=== PATIENT | male | born 1965 | race Caucasian/White ===

== ENCOUNTER 2016-12-13 07:57 | Day surgery (SDC) | payer BC ==
[2016-12-13] MEDS ORDERED: Lactated Ringers 1,000 ML IV SCH (08:45)
[2016-12-13] MEDS ORDERED: fentaNYL 100 MCG/2 ML SDV ONE (10:00)
[2016-12-13] MEDS ORDERED: Propofol 200 MG/20 ML SDV ONE (10:00)
[2016-12-13] MEDS ORDERED: Midazolam 1 MG/ML 2 ML SDV ONE (10:01)
[2016-12-13 11:54] VITALS: BP 110/77
--- NOTE | 2016-12-13 18:33 | OR ---
DATE OF PROCEDURE: 12/13/2016 PREOPERATIVE DIAGNOSIS: Colon cancer screening. POSTOPERATIVE DIAGNOSIS: Unremarkable colonoscopy. PROCEDURE PERFORMED: Colonoscopy to the cecum. SURGEON: Feliz Broderick MD. ANESTHESIA: IV anesthesia with monitored anesthesia care. INDICATION: This 51-year-old white male is referred for a colonoscopy for colon cancer screening. He has never had a colonoscopic exam. I counseled him for the procedure including risks, alternatives, and he gave his informed consent to proceed. DESCRIPTION OF PROCEDURE: The patient was placed in the left lateral decubitus position. IV anesthesia was administered by the Anesthesia Service. Time-out was held. A rectal exam was performed, which was unremarkable. The flexible video Olympus colonoscope was introduced through his anus, up his rectum, and out his colon all way to the cecum. To reach the cecum, we did apply some abdominal compression. Once the cecum was reached, the scope was slowly withdrawn, examining the mucosa throughout. No mucosal abnormalities were noted. The scope was retroflexed in the rectum with the distal rectum appearing unremarkable. The scope was straightened and removed. He tolerated the procedure well. Feliz Broderick MD /[id number] MTDD
== END 2016-12-13 11:57 | disposition home or self-care (01) ==
LOC: JP.SDS 07:57
PROVIDERS: ATTEND Surgery
DX: Z12.11 Encounter for screening for malignant neoplasm of colon (principal); K21.9 Gastro-esophageal reflux disease without esophagitis
CPT/HCPCS: 45378; J2250; J2704; J3010; J7120

== ENCOUNTER 2017-02-28 06:31 | Inpatient (IN) | payer BC ==
[2017-02-28] MEDS ORDERED: Nitroglycerin 0.4 MG Tab.SL SL PRN (06:39)
[2017-02-28] MEDS ORDERED: Sodium Chloride 0.9% 10 ML Syringe FLUSH PRN (06:39)
[2017-02-28] MEDS ORDERED: Morphine 2 MG/ML Syringe IVPUSH PRN ×2 (06:39→10:40)
[2017-02-28] MEDS ORDERED: Aspirin 81 MG Tab.Chew PO ONE (06:39)
[2017-02-28] MEDS ORDERED: Ondansetron 4 MG/2 ML SDV IVPUSH ONE ×2 (06:46→07:51)
--- NOTE | 2017-02-28 06:48 | EDM.PDOC ---
<OfficerJv - Last Filed: 02/28/17 06:45> ED HPI GENERAL MEDICAL PROBLEM - General Chief Complaint: Chest Pain Stated Complaint: CHEST PAIN Time Seen by Provider: 02/28/17 06:39 Source of Information: Reports: Patient, Family, RN Notes Reviewed History Limitations: Reports: No Limitations - History of Present Illness INITIAL COMMENTS - FREE TEXT/NARRATIVE: 51-year-old gentleman presents emergency department day complaint of epigastric pain, he states the pain started about 3:30 this evening awoke him from sleep it is constant in nature does feel nauseated and some shortness of breath, he denies any significant cardiac history no family history denies any tobacco use has not tried anything for the pain Chest Pain Score (Numeric/FACES): 7 - Related Data Allergies Allergy/AdvReac Type Severity Reaction Status Date / Time No Known Drug Allergies Allergy Other Verified 02/28/17 06:41 Home Meds: Home Meds Gluc 2KCl/Chondr/Yahaira Hy/Hy Ac [Glucosamine & Chondroitin Cap] 1 tab PO DAILY [History] Multivitamin with Minerals [Multiple Vitamin] 1 tab PO DAILY 08/23/16 [History] [place]-3/DHA/Epa/Fish Oil [[place]-3 Fish Oil 1,000 MG Sfgl] 1,000 mg PO DAILY [History] Past Medical History HEENT History: Reports: Impaired Vision - Infectious Disease History Infectious Disease History: Reports: Chicken Pox - Past Surgical History Neurological Surgical History: Reports: Lumbar Spine Musculoskeletal Surgical History: Reports: Other (See Below) Other Musculoskeletal Surgeries/Procedures:: BACK SURGERY IN 2008 Social & Family History - Family History Family Medical History: Noncontributory - Tobacco Use Smoking Status *Q: Never Smoker Second Hand Smoke Exposure: No - Caffeine Use Caffeine Use: Reports: Coffee, Soda - Alcohol Use Days Per Week of Alcohol Use: 7 Number of Drinks Per Day: 2 Total Drinks Per Week: 14 - Recreational Drug Use Recreational Drug Use: No ED ROS GENERAL - Review of Systems Review Of Systems: See Below Constitutional: Reports: No Symptoms HEENT: Reports: No Symptoms Respiratory: Reports: Shortness of Breath Cardiovascular: Reports: No Symptoms GI/Abdominal: Reports: Abdominal Pain (Epigastric), Nausea Musculoskeletal: Reports: No Symptoms Skin: Reports: No Symptoms Neurological: Reports: No Symptoms ED EXAM, GENERAL - Physical Exam Exam: See Below Free Text/Narrative:: General: Male moderate discomfort secondary to epigastric pain, alert and oriented x3 HEENT: head is atraumatic normocephalic, eyes pupils equal round reactive to light, sclera clear no conjunctivitis appreciated. Ears tympanic membranes clear and sabillon landmarks and light reflex are present bilaterally canals are clear. Nose no septal deviation, nares are clear, no blood present. Mouth mucosa is moist and pink no erythema or exudate noted in soft palate, tongue is midline uvula is midline, dentition is intact. Neck: Supple no thyromegaly no tracheal deviation. Nodes: Cervical nodes subclavicular nodes nontender no palpable lymphadenopathy noted. Lungs: clear to auscultation bilaterally with symmetrical respirations, no adventitious noise appreciated. CV: Regular rate and rhythm S1 and S2 appreciated no murmurs rubs or gallops noted. Abdomen: Soft, tender to palpation in epigastric region, no palpable masses or organomegaly appreciated, no distention no guarding bowel sounds are present, . Neuro: Cranial nerves II through XII grossly intact Skin: Warm and dry, intact Extremities: No lower extremity edema appreciated, pedal pulse is +2. Course - Vital Signs Last Recorded V/S: Last Vital Signs Temp 35.8 C 02/28/17 06:38 Pulse 72 02/28/17 08:03 Resp 16 02/28/17 08:03 BP 142/100 H 02/28/17 08:03 Pulse Ox 96 02/28/17 08:03 - Orders/Labs/Meds Orders: Active Orders 24 hr Category Date Time Status Cardiac Monitoring [RC] .As Directed Care 02/28/17 06:39 Active EKG Documentation Completion [RC] ASDIRECTED Care 02/28/17 06:40 Active Peripheral IV Care [RC] . DIRECTED Care 02/28/17 06:40 Active Abdomen Ltd [US] Stat Exams 02/28/17 07:38 Ordered Chest 1V Frontal [CR] Stat Exams 02/28/17 06:40 Taken Morphine Med 02/28/17 06:39 Active 2 mg IVPUSH Q10M PRN Nitroglycerin [Nitrostat] Med 02/28/17 06:39 Active 0.4 mg SL Q5M PRN Sodium Chloride 0.9% [Saline Flush] Med 02/28/17 06:39 Active 10 ml FLUSH ASDIRECTED PRN Peripheral IV Insertion Adult [OM.PC] Stat Oth 02/28/17 06:39 Ordered Saline Lock Insert [OM.PC] Stat Oth 02/28/17 06:39 Ordered EKG 12 Lead [EK] Stat Ther 02/28/17 06:40 Ordered Medication Orders Morphine Sulfate (Morphine) 2 mg IVPUSH Q10M PRN PRN Reason: Chest Pain Stop: 03/01/17 06:40 Last Admin: 02/28/17 07:07 Dose: 2 mg Nitroglycerin (Nitrostat) 0.4 mg SL Q5M PRN PRN Reason: Chest Pain Stop: 03/01/17 06:40 Last Admin: 02/28/17 06:56 Dose: 0.4 mg Sodium Chloride (Saline Flush) 10 ml FLUSH ASDIRECTED PRN PRN Reason: Keep Vein Open Last Admin: 02/28/17 06:54 Dose: 10 ml Labs: Laboratory Tests 02/28/17 02/28/17 02/28/17 Range/Units 06:45 06:45 06:45 WBC 8.9 (4.5-11.0) K/uL RBC 5.30 (4.30-5.90) M/uL Hgb 15.7 H (12.0-15.0) g/dL Hct 46.2 (40.0-54.0) % MCV 87 (80-98) fL MCH 30 (27-31) pg MCHC 34 (32-36) % Plt Count 270 (150-400) K/uL Neut % (Auto) 66 (36-66) % Lymph % (Auto) 23 L (24-44) % Edgar % (Auto) 8 H (2-6) % Eos % (Auto) 3 (2-4) % Baso % (Auto) 0 (0-1) % PT 10.2 (9.5-12.0) sec INR 0.96 (0.80-1.20) APTT 28.1 (27.0-36.0) sec Sodium 140 (140-148) mmol/L Potassium 3.8 (3.6-5.2) mmol/L Chloride 104 (100-108) mmol/L Carbon Dioxide 28 (21-32) mmol/L Anion Gap 8.1 (5.0-14.0) mmol/L BUN 9 (7-18) mg/dL Creatinine 0.8 (0.8-1.3) mg/dL Est Cr Clr Drug Dosing 117.66 mL/min Estimated GFR (MDRD) > 60 (>60) Glucose 122 H (74-106) mg/dL Calcium 8.6 (8.5-10.1) mg/dL Total Bilirubin 0.3 (0.2-1.0) mg/dL AST 12 L (15-37) U/L ALT 40 (12-78) U/L Alkaline Phosphatase 100 (46-116) U/L CK-MB (CK-2) 0.7 (0-3.6) mg/mL Troponin I < 0.017 (0.000-0.056) ng/mL C-Reactive Protein (0.0-0.3) mg/dL Total Protein 7.6 (6.4-8.2) g/dL Albumin 3.6 (3.4-5.0) g/dL Globulin 4.0 H (2.3-3.5) g/dL Albumin/Globulin Ratio 0.9 L (1.2-2.2) Amylase (25-115) U/L Lipase (73-393) U/L 02/28/17 02/28/17 02/28/17 Range/Units 06:45 06:45 07:24 WBC (4.5-11.0) K/uL RBC (4.30-5.90) M/uL Hgb (12.0-15.0) g/dL Hct (40.0-54.0) % MCV (80-98) fL MCH (27-31) pg MCHC (32-36) % Plt Count (150-400) K/uL Neut % (Auto) (36-66) % Lymph % (Auto) (24-44) % Edgar % (Auto) (2-6) % Eos % (Auto) (2-4) % Baso % (Auto) (0-1) % PT (9.5-12.0) sec INR (0.80-1.20) APTT (27.0-36.0) sec Sodium (140-148) mmol/L Potassium (3.6-5.2) mmol/L Chloride (100-108) mmol/L Carbon Dioxide (21-32) mmol/L Anion Gap (5.0-14.0) mmol/L BUN (7-18) mg/dL Creatinine (0.8-1.3) mg/dL Est Cr Clr Drug Dosing mL/min Estimated GFR (MDRD) (>60) Glucose (74-106) mg/dL Calcium (8.5-10.1) mg/dL Total Bilirubin (0.2-1.0) mg/dL AST (15-37) U/L ALT (12-78) U/L Alkaline Phosphatase (46-116) U/L CK-MB (CK-2) (0-3.6) mg/mL Troponin I (0.000-0.056) ng/mL C-Reactive Protein 0.66 H (0.0-0.3) mg/dL Total Protein (6.4-8.2) g/dL Albumin (3.4-5.0) g/dL Globulin (2.3-3.5) g/dL Albumin/Globulin Ratio (1.2-2.2) Amylase 37 (25-115) U/L Lipase 100 (73-393) U/L Meds: Medications Generic Name Dose Route Start Last Admin Trade Name Freq PRN Reason Stop Dose Admin Morphine Sulfate 2 mg 02/28/17 06:39 02/28/17 07:07 Morphine IVPUSH 03/01/17 06:40 2 mg Q10M PRN Administration Chest Pain Nitroglycerin 0.4 mg 02/28/17 06:39 02/28/17 06:56 Nitrostat SL 03/01/17 06:40 0.4 mg Q5M PRN Administration Chest Pain Sodium Chloride 10 ml 02/28/17 06:39 02/28/17 06:54 Saline Flush FLUSH 10 ml ASDIRECTED PRN Administration Keep Vein Open Discontinued Medications Generic Name Dose Route Start Last Admin Trade Name Freq PRN Reason Stop Dose Admin Aspirin 324 mg 02/28/17 06:39 02/28/17 06:52 Aspirin PO 02/28/17 06:40 324 mg ONETIME ONE Administration Al Hydroxide/Mg Hydroxide 15 0 ml 02/28/17 07:18 02/28/17 07:26 ml/ Lidocaine HCl 15 ml PO 02/28/17 07:19 30 ml ONETIME ONE Administration Morphine Sulfate 2 mg 02/28/17 07:36 02/28/17 07:41 Morphine IVPUSH 02/28/17 07:37 2 mg ONETIME ONE Administration Ondansetron HCl 4 mg 02/28/17 06:46 02/28/17 06:53 Zofran IVPUSH 02/28/17 06:47 4 mg ONETIME ONE Administration Ondansetron HCl 4 mg 02/28/17 07:51 02/28/17 08:02 Zofran IVPUSH 02/28/17 07:52 4 mg ONETIME ONE Administration Departure - Departure Disposition: Admitted As Inpatient 67 Clinical Impression: Cholelithiasis, Right bundle branch block Referrals: Myron Acharya PA [Primary Care Provider] - Forms: ED Department Discharge Care Plan Goals: admit to Dr dubose - My Orders Last 24 Hours: My Active Orders 02/28/17 07:38 Abdomen Ltd [US] Stat - Assessment/Plan Last 24 Hours: My Active Orders 02/28/17 07:38 Abdomen Ltd [US] Stat <Aria Cai - Last Filed: 02/28/17 08:36> Course - Re-Assessments/Exams Free Text/Narrative Re-Assessment/Exam: 02/28/17 07:32 pt did not get good relief from the morphine and he was given a GI cocktail. His pain is mainly epigastric. He does not feel belchy. He woke up with this pain. 02/28/17 07:33 02/28/17 07:38 pt has not gotten rekief with the gi cocktail. 02/28/17 07:42 pt does have his gb and will do a limited abdoman. 02/28/17 08:32 Us revealed no GB thickening but he has a good sized stone in the neck of the GB. He is much more comfortable since he had the second dose of the morphine. Departure - Departure Time of Disposition: 08:34 Condition: Fair
[2017-02-28] MEDS ORDERED: Alum Hydrox/Mag Hydrox/Simeth 15 ML, Lidocaine 2% 15 ML PO ONE ×2 (07:18)
[2017-02-28] MEDS ORDERED: Morphine 2 MG/ML Syringe IVPUSH ONE (07:36)
--- NOTE | 2017-02-28 09:49 | PCM.HP ---
H&P History of Present Illness - General Date of Service: 02/28/17 Admit Problem/Dx: Admission Diagnosis/Problem Admission Diagnosis/Problem Cholelithiasis and cholecystitis without obstruction Source of Information: Patient, Family, Provider History Limitations: Reports: No Limitations - History of Present Illness Initial Comments - Free Text/Narative: Nader presented to the emergency room with severe, sharp epigastric pain that started around 3:30 AM on the day of presentation and woke him from sleep. He took omeprazole and a dose of Rolaids at home without any relief. He has had nitroglycerin, a GI cocktail as well as 2 doses of morphine before his pain was relieved in the emergency room. The second dose of morphine seemed to provide the most relief. He did not identify any exacerbating factors well at home or in the emergency room with the constant pain. He does report a history of similar episodes though not nearly as intense. He had some mild nausea associated with the pain but no vomiting. He has not had recent difficulty with fevers or chills. Weight and bowel movements have been stable. He has an excellent functional status and no limitations such as chest pain or dyspnea with exertion. He had brought [facility] [employer] for supper last night. Workup in the emergency room was initially unrevealing. Initial concern was for acute coronary syndrome but there is no evidence for EKG abnormality and his troponin level is normal. Right upper quadrant ultrasound revealed a large gallstone in the neck of the gallbladder but no strong evidence for acute cholecystitis. He will be admitted for further management. Chest Pain Score (Numeric/FACES): 3 - Related Data Allergies/Adverse Reactions: Allergies Allergy/AdvReac Type Severity Reaction Status Date / Time No Known Drug Allergies Allergy Other Verified 02/28/17 06:41 Home Medications: Home Meds Gluc 2KCl/Chondr/Yahaira Hy/Hy Ac [Glucosamine & Chondroitin Cap] 1 tab PO DAILY [History] Multivitamin with Minerals [Multiple Vitamin] 1 tab PO DAILY 08/23/16 [History] [place]-3/DHA/Epa/Fish Oil [[place]-3 Fish Oil 1,000 MG Sfgl] 1,000 mg PO DAILY [History] Past Medical History HEENT History: Reports: Impaired Vision Gastrointestinal History: Reports: GERD - Infectious Disease History Infectious Disease History: Reports: Chicken Pox - Past Surgical History Neurological Surgical History: Reports: Lumbar Spine Musculoskeletal Surgical History: Reports: Other (See Below) Other Musculoskeletal Surgeries/Procedures:: BACK SURGERY IN 2009 Social & Family History - Family History Family Medical History: Noncontributory - Tobacco Use Smoking Status *Q: Never Smoker Second Hand Smoke Exposure: No - Caffeine Use Caffeine Use: Reports: Coffee, Soda - Alcohol Use Days Per Week of Alcohol Use: 7 Number of Drinks Per Day: 2 Total Drinks Per Week: 14 - Recreational Drug Use Recreational Drug Use: No Recreational Drug Type: Reports: Marijuana/Hashish Recreational Drug Use Frequency: Monthly H&P Review of Systems - Review of Systems: Review Of Systems: See Below Free Text/Narrative: A complete 12 point review of systems was obtained. Pertinent positives and negatives are noted in the history of present illness. All other systems were reviewed and were negative except as noted. Exam - Exam Exam: See Below - Vital Signs Vital Signs: Last Vital Signs Temp 35.8 C 02/28/17 06:38 Pulse 72 02/28/17 08:03 Resp 16 02/28/17 08:03 BP 142/100 H 02/28/17 08:03 Pulse Ox 96 02/28/17 08:03 Weight: 94.9 kg - Exam Quality Assessment: No: Supplemental Oxygen General: Alert, Oriented, Cooperative. No: Mild Distress HEENT: Conjunctiva Clear, Mucosa Moist & Welch. No: Scleral Icterus Neck: Supple, Trachea Midline. No: Lymphadenopathy Lungs: Clear to Auscultation, Normal Respiratory Effort Cardiovascular: Regular Rate, Regular Rhythm. No: Systolic Murmur GI/Abdominal Exam: Normal Bowel Sounds, Soft, No Distention, No Mass, Tender ( mild RUQ) Back Exam: Full Range of Motion. No: Muscle Spasm Extremities: Normal Inspection, No Pedal Edema. No: Increased Warmth Peripheral Pulses: 2+: Dorsalis Pedis (L), Dorsalis Pedis (R) Skin: Warm, Dry Neuro Extensive - Mental Status: Alert, Oriented x3, Nl Response to Commands Neuro Extensive - Motor, Sensory, Reflexes: CN II-XII Intact. No: Dysarthria, Abnormal Motor, Tremor Psychiatric: Alert, Normal Affect - Patient Data Lab Results Last 24 hrs: Laboratory Results - last 24 hr 02/28/17 02/28/17 02/28/17 Range/Units 06:45 06:45 06:45 WBC 8.9 (4.5-11.0) K/uL RBC 5.30 (4.30-5.90) M/uL Hgb 15.7 H (12.0-15.0) g/dL Hct 46.2 (40.0-54.0) % MCV 87 (80-98) fL MCH 30 (27-31) pg MCHC 34 (32-36) % Plt Count 270 (150-400) K/uL Neut % (Auto) 66 (36-66) % Lymph % (Auto) 23 L (24-44) % Harrison % (Auto) 8 H (2-6) % Eos % (Auto) 3 (2-4) % Baso % (Auto) 0 (0-1) % PT 10.2 (9.5-12.0) sec INR 0.96 (0.80-1.20) APTT 28.1 (27.0-36.0) sec Sodium 140 (140-148) mmol/L Potassium 3.8 (3.6-5.2) mmol/L Chloride 104 (100-108) mmol/L Carbon Dioxide 28 (21-32) mmol/L Anion Gap 8.1 (5.0-14.0) mmol/L BUN 9 (7-18) mg/dL Creatinine 0.8 (0.8-1.3) mg/dL Est Cr Clr Drug Dosing 117.66 mL/min Estimated GFR (MDRD) > 60 (>60) Glucose 122 H (74-106) mg/dL Calcium 8.6 (8.5-10.1) mg/dL Total Bilirubin 0.3 (0.2-1.0) mg/dL AST 12 L (15-37) U/L ALT 40 (12-78) U/L Alkaline Phosphatase 100 (46-116) U/L CK-MB (CK-2) 0.7 (0-3.6) mg/mL Troponin I < 0.017 (0.000-0.056) ng/mL C-Reactive Protein (0.0-0.3) mg/dL Total Protein 7.6 (6.4-8.2) g/dL Albumin 3.6 (3.4-5.0) g/dL Globulin 4.0 H (2.3-3.5) g/dL Albumin/Globulin Ratio 0.9 L (1.2-2.2) Amylase (25-115) U/L Lipase (73-393) U/L 02/28/17 02/28/17 02/28/17 Range/Units 06:45 06:45 07:24 WBC (4.5-11.0) K/uL RBC (4.30-5.90) M/uL Hgb (12.0-15.0) g/dL Hct (40.0-54.0) % MCV (80-98) fL MCH (27-31) pg MCHC (32-36) % Plt Count (150-400) K/uL Neut % (Auto) (36-66) % Lymph % (Auto) (24-44) % Harrison % (Auto) (2-6) % Eos % (Auto) (2-4) % Baso % (Auto) (0-1) % PT (9.5-12.0) sec INR (0.80-1.20) APTT (27.0-36.0) sec Sodium (140-148) mmol/L Potassium (3.6-5.2) mmol/L Chloride (100-108) mmol/L Carbon Dioxide (21-32) mmol/L Anion Gap (5.0-14.0) mmol/L BUN (7-18) mg/dL Creatinine (0.8-1.3) mg/dL Est Cr Clr Drug Dosing mL/min Estimated GFR (MDRD) (>60) Glucose (74-106) mg/dL Calcium (8.5-10.1) mg/dL Total Bilirubin (0.2-1.0) mg/dL AST (15-37) U/L ALT (12-78) U/L Alkaline Phosphatase (46-116) U/L CK-MB (CK-2) (0-3.6) mg/mL Troponin I (0.000-0.056) ng/mL C-Reactive Protein 0.66 H (0.0-0.3) mg/dL Total Protein (6.4-8.2) g/dL Albumin (3.4-5.0) g/dL Globulin (2.3-3.5) g/dL Albumin/Globulin Ratio (1.2-2.2) Amylase 37 (25-115) U/L Lipase 100 (73-393) U/L Result Diagrams: 02/28/17 06:45 02/28/17 06:45 Imaging Impressions Last 24 hrs: CXR - images personally reviewed - clear with no mass, infiltrate, effusion or chf. Heart size is normal. RUQ US - there is a large stone at the neck of the gall bladder. No wall thickening or pericholecystic fluid. EKG INTERPRETATION EKG Date: 02/28/17 Rhythm: NSR Rate (Beats/Min): 70 [place]: Normal P-Wave: Present QRS: RBBB ST-T: Normal QT: Normal *Q Meaningful Use (ADM) - VTE *Q VTE Criteria *Q: VTE Pharmacological Contraindications *Q: Patient Scheduled Surgery - VTE Risk Assess *Q Each Risk Factor Represents 1 Point: Age 41 - 59 years, Minor Surgery Planned Total Score 1 Point Risk Factors: 2 Each Risk Factor Represents 2 Points: None Total Score 2 Point Risk Factors: 0 Each Risk Factor Represents 3 Points: None Total Score 3 Point Risk Factors: 0 Each Risk Factor Represents 5 Points: None Total Score 5 Point Risk Factors: 0 Venous Thromboembolism Risk Factor Score *Q: 2 - Stroke *Q Stroke Criteria *Q: - AMI *Q AMI Criteria *Q: - Problem List (1) Epigastric abdominal pain SNOMED Code(s): 26329880 ICD Code: R10.13 - EPIGASTRIC PAIN Status: Acute Current Visit: Yes (2) Cholelithiasis SNOMED Code(s): 874996096 ICD Code: K80.20 - CALCULUS OF GALLBLADDER W/O CHOLECYSTITIS W/O OBSTRUCTION Status: Acute Current Visit: Yes Qualifiers: Cholelithiasis location: gallbladder Cholecystitis presence: without cholecystitis Biliary obstruction: without biliary obstruction Qualified Code(s): K80.20 - Calculus of gallbladder without cholecystitis without obstruction Problem List Initiated/Reviewed/Updated: Yes Orders Last 24hrs: Active Orders 24 hr Category Date Time Status Patient Status Manage Transfer [TRANSFER] Routine ADT 02/28/17 09:39 Ordered Cardiac Monitoring [RC] .As Directed Care 02/28/17 06:39 Active EKG Documentation Completion [RC] ASDIRECTED Care 02/28/17 06:40 Active Peripheral IV Care [RC] . DIRECTED Care 02/28/17 06:40 Active Abdomen Ltd [US] Stat Exams 02/28/17 07:38 Taken Chest 1V Frontal [CR] Stat Exams 02/28/17 06:40 Taken Morphine Med 02/28/17 06:39 Active 2 mg IVPUSH Q10M PRN Nitroglycerin [Nitrostat] Med 02/28/17 06:39 Active 0.4 mg SL Q5M PRN Sodium Chloride 0.9% [Saline Flush] Med 02/28/17 06:39 Active 10 ml FLUSH ASDIRECTED PRN Peripheral IV Insertion Adult [OM.PC] Stat Oth 02/28/17 06:39 Ordered Saline Lock Insert [OM.PC] Stat Oth 02/28/17 06:39 Ordered Resuscitation Status Routine Resus Stat 02/28/17 09:41 Ordered EKG 12 Lead [EK] Stat Ther 02/28/17 06:40 Ordered Medication Orders Morphine Sulfate (Morphine) 2 mg IVPUSH Q10M PRN PRN Reason: Chest Pain Stop: 03/01/17 06:40 Last Admin: 02/28/17 07:07 Dose: 2 mg Nitroglycerin (Nitrostat) 0.4 mg SL Q5M PRN PRN Reason: Chest Pain Stop: 03/01/17 06:40 Last Admin: 02/28/17 06:56 Dose: 0.4 mg Sodium Chloride (Saline Flush) 10 ml FLUSH ASDIRECTED PRN PRN Reason: Keep Vein Open Last Admin: 02/28/17 06:54 Dose: 10 ml Assessment/Plan Comment:: Assessment and plan - Epigastric abdominal pain with cholelithiasis - gallstone appears to be lodged in the neck of the gallbladder which certainly could explain his symptoms. He has a history of similar but not as severe episodes as well. I have discussed the case with Dr. Hoyt who felt that cholecystectomy would be warranted. Patient will be admitted for pain control, IV antibiotics and IV fluids with the plan for surgical intervention tomorrow. He has an excellent functional status and is in optimal achievable condition for the proposed surgery. -Full liquids today, nothing by mouth after midnight -Pain control -Antibiotic coverage with Amp/Sulbactam -Anti-emetics if needed -Consult Dr. Hoyt, cholecystectomy planned for tomorrow Maintenance issues - - DVT prophylaxis - mechanical - GI prophylaxis - not indicated - Nutrition - full liquids today, nothing by mouth after midnight - Joseph catheter - not indicated CODE STATUS - full code Admission justification - This patient will be admitted for inpatient services and is medically appropriate meeting medical necessity for inpatient admission as outlined in my documentation. I reasonably expect the patient will require inpatient services that span a period time over 2 midnights. I reasonably expect this patient to be discharged or transferred within 96 hours after admission to the [facility]. Disposition - anticipate discharge to home after the hospital stay Shaheed Paiz M.D.
[2017-02-28] MEDS ORDERED: Acetaminophen 325 MG Tab PO PRN (10:40)
[2017-02-28] MEDS ORDERED: Ondansetron 4 MG Tab.DIS PO PRN (10:40)
[2017-02-28] MEDS ORDERED: Ondansetron 4 MG/2 ML SDV IV PRN (10:40)
[2017-02-28] MEDS ORDERED: oxyCODONE 5 MG Tab PO PRN (10:40)
--- NOTE | 2017-02-28 11:16 | CR ---
Chest 1V Frontal INDICATION: Chest Pain COMPARISON: None FINDINGS: Single view of the chest obtained shows normal heart size. No infiltrate or pleural effus ion. No signs of pulmonary edema. IMPRESSION: Negative single view of the chest.
--- NOTE | 2017-02-28 11:18 | US ---
Abdomen Ltd INDICATION: severe pain in the upper abdomen. COMPARISON: None FINDINGS: Liver unremarkable in appearance. Gallstone lodged in the neck of the gallbladder. No gallbladder wall thickening or sonographic Murry 's sign. No biliary distention. Abdominal aorta and inferior vena cava are unremarkable where visualized. Visualized portions of the pancreas are unremarkable. Right kidney unremarkable. No calculi or hydronephrosis. No ascites seen in the right upper quadrant. IMPRESSION: Gallstone lodged in the neck of the gallbladder. No gallbladder wall thickening or sonogr aphic Murry's sign.
[2017-02-28] MEDS ORDERED: HYDROmorphone/Normal Saline 15 MG/30 ML PCA IV PRN (11:28)
[2017-02-28] MEDS ORDERED: Naloxone 0.4 MG/ML SDV IV PRN (11:28)
[2017-02-28] MEDS: Ampicillin/Sulbactam Na 3 GM in Sodium Chloride 0.9% 100 ML IV SCH ×3 (11:33→22:47)
[2017-02-28] MEDS: Aztreonam/Dextrose-Water 1 GM in Premix Bag 1 BAG IV SCH ×2 (12:28→20:01)
[2017-02-28] MEDS ORDERED: Lactated Ringers 1,000 ML IV SCH ×2 (20:30→23:00)
[2017-03-01] MEDS: Aztreonam/Dextrose-Water 1 GM in Premix Bag 1 BAG IV SCH (03:19)
[2017-03-01] MEDS: Ampicillin/Sulbactam Na 3 GM in Sodium Chloride 0.9% 100 ML IV SCH ×4 (04:34→22:47)
[2017-03-01] MEDS ORDERED: Bupivacaine 0.5%/EPINEPHrine 1:200,000 50 ML MDV ONE (07:17)
[2017-03-01] MEDS ORDERED: Ondansetron 4 MG/2 ML SDV ONE (07:54)
[2017-03-01] MEDS ORDERED: Neostigmine Methylsulfate 1 MG/ML 5 ML Syringe ONE (07:54)
[2017-03-01] MEDS ORDERED: Glycopyrrolate 0.2 MG/ML 5 ML MDV ONE (07:54)
[2017-03-01] MEDS ORDERED: Propofol 200 MG/20 ML SDV ONE (07:54)
[2017-03-01] MEDS ORDERED: Rocuronium 50 MG/5 ML Vial ONE (07:54)
[2017-03-01] MEDS ORDERED: Succinylcholine 200 MG/10 ML MDV ONE (07:54)
[2017-03-01] MEDS ORDERED: Dexamethasone 4 MG/ML SDV ONE (07:54)
--- NOTE | 2017-03-01 09:02 | PN ---
DATE OF SERVICE: 03/01/2017 HISTORY OF PRESENT ILLNESS: Nader was admitted to [address] [place] [address] for acute cholecystitis. He is n.p.o. and will be having a laparoscopic cholecystectomy today. Case to follow, Ariel Hoyt M.D., general anesthesia. REVIEW OF SYSTEM: GENERAL: He reports that he no longer has any pain. He is n.p.o. No fever, chills, night sweats, or fatigue. NECK: Negative. CHEST: No chest pain, shortness of breath. LUNGS: No cough. ABDOMEN: Denies any diarrhea, constipation, red or black stools. : Negative. EXTREMITIES: Negative. NEURO: Negative for headache, dizziness. SKIN: Without rash. Remainder of review of systems negative for any pertinent positives and negatives. OBJECTIVE: GENERAL: Nader Ghosh is a 51-year-old male. He is alert and orientated, and resting comfortably in bed. VITAL SIGNS: TPR 96.2, 71, and 14. Blood pressure 121/71. HEENT: Negative. NECK: Supple. HEART: Regular rate and rhythm. LUNGS: Clear. ABDOMEN: Tender at the right upper quadrant and mid epigastric area. EXTREMITIES: Negative. NEURO: Intact. SKIN: Without rash. ASSESSMENT: Cholelithiasis and cholecystitis without obstruction. PLAN: Orders to be written after laparoscopic cholecystectomy. Case to follow. Remain n.p.o. Krissy Phoenix PA-C /[id number]
[2017-03-01] MEDS ORDERED: Lactated Ringers 1,000 ML ONE (09:09)
[2017-03-01] MEDS ORDERED: Dextrose 5%-Lactated Ringers 1,000 ML IV SCH (11:00)
[2017-03-01] MEDS ORDERED: Pantoprazole 40 MG Vial IVPUSH SCH (11:00)
[2017-03-01] MEDS: Acetaminophen/HYDROcodone 325-5 MG Tab PO PRN (20:56)
[2017-03-02] MEDS: Acetaminophen/HYDROcodone 325-5 MG Tab PO PRN ×2 (02:33→07:30)
[2017-03-02] MEDS: Ampicillin/Sulbactam Na 3 GM in Sodium Chloride 0.9% 100 ML IV SCH (05:45)
[2017-03-02 07:37] VITALS: BP 115/65
[2017-03-02] MEDS ORDERED: Magnesium Hydroxide 400 MG/5 ML Susp 30 ML Cup PO ONE (08:58)
--- NOTE | 2017-03-02 09:33 | DISCH ---
ADMISSION DIAGNOSES: 1. Acute upper quadrant abdominal pain. 2. Cholecystitis. 3. Cholelithiasis. 4. Right bundle branch block. 5. Gastroesophageal reflux disease. 6. Primary osteoarthritis of left hip. DISCHARGE DIAGNOSES: Diagnostic laparoscopy with cholecystectomy and repair of incarcerated umbilical hernia for subacute ischemic cholecystitis and cholelithiasis, and incarcerated umbilical hernia. Date of surgery 03/01/2017; Ariel Hoyt MD, surgeon. HISTORY: Nader Ghosh is a 51-year-old male who had sudden onset of upper quadrant abdominal pain and chest pain. He went to the emergency room, had a complete workup, and it revealed cholecystitis with cholelithiasis. After preoperative evaluation and discussion of possible risks and possible complications, he wished to proceed with surgical procedure. HOSPITAL COURSE: Nader had his surgery on 03/01/2017. He had no operative complications. On postop day #1, his activity was good, pain controlled, and tolerated a diet well. He had adequate oral intake and vital signs were stable. He was ready to be discharged to home. PHYSICAL EXAMINATION: GENERAL: Nader Ghosh is a 51-year-old male. VITAL SIGNS: Height is 5 feet 10.87 inches. Weight is 209 pounds. TPR is 97, 74, 17, and blood pressure 115/65. HEENT: Negative. NECK: Supple. HEART: Regular rate and rhythm. LUNGS: Clear. ABDOMEN: Dressings dry and intact. Abdominal binder is on. 4x4s over CONSTANCE drain sites. EXTREMITIES: Without peripheral edema. DISPOSITION: Discharged to home. CONDITION: Stable and improving. FOLLOWUP: With Ariel Hoyt MD, on 03/09/2017 at 8:15 a.m. DISCHARGE MEDICATIONS: Home medications; 1. Grindstone 5/325 mg 1 to 2 tabs every 4 hours p.r.n. pain, #40. 2. Milk of magnesia, take 30 mLs when you get home and one in a.m. if no bowel movement. 3. He is to resume taking his glucosamine and chondroitin 1 tablet daily. 4. Multivitamin one tablet daily. 5. Fish oil 1000 mg oral daily. DISCHARGE DIET: Usual diet as tolerated. Avoid greasy and spicy foods. Drink 8 to 10 glasses of water a day. ACTIVITY: As tolerated. No lifting over 10 pounds for 2 weeks[address]riving, do not drive while on pain medication. Shower/bathing, may shower. DISCHARGE INSTRUCTIONS: Notify provider if any fever, increased pain, nausea, or vomiting. Wound incision care, keep site clean and dry. Wear abdominal binder for 2 weeks and then as tolerated. Use incentive spirometer 10 times every hour while awake.
--- NOTE | 2017-03-07 13:05 | OR ---
DATE OF PROCEDURE: 03/01/2017 PREOPERATIVE DIAGNOSES: Subacute and chronic cholecystitis and cholelithiasis. POSTOPERATIVE DIAGNOSES: 1. Subacute and chronic cholecystitis and cholelithiasis. 2. Incarcerated umbilical hernia. OPERATION: Diagnostic laparoscopy with: 1. Cholecystectomy (55935). 2. Repair of incarcerated umbilical hernia (72917). ANESTHESIA: General. ANALYTICAL LABORATORY TECHNICIAN: Krissy Phoenix PA-C and LAURA Robb. INDICATION FOR PROCEDURE: This is a 51-year-old male with some recent episodes of right upper quadrant pain presenting with a more severe attack this time. Workup is consistent with cholelithiasis associated with gallbladder wall thickening, i.e. the clinical picture was that of a biliary colic. The patient was admitted and the plan was to proceed with the cholecystectomy at this time. Potential risks of the procedure including bleeding, infection, injury to underlying viscera such as common bile duct, problems with stones migrating into the common bile duct requiring additional procedures for correction, as well as possible persistence of symptoms postoperatively were all gone over along with the remote possibility of cardiopulmonary, septic, or hemorrhagic complications leading to were all discussed, and the patient wishes to proceed. DETAILS OF PROCEDURE: The patient was taken to the operating room and placed in a supine position. After general endotracheal anesthesia was induced, the abdomen was prepped and draped, a transverse subumbilical incision was made and the umbilical hernia was then encountered. This measured about 1 cm in terms of defect and the surrounding incarcerated preperitoneal fat was then excised. Then allowed placement of 12 mm trocar through the umbilical hernia defect. The 12 mm upper epigastric trocar was then placed along with a single 5 mm right abdominal trocar. As expected, the patient had a quite edematous gallbladder consistent with subacute component of the cholecystitis. The gallbladder was then retracted anteriorly and laterally. Dissection began on the gallbladder neck with Harmonic scalpel and continued around the gallbladder neck and cystic duct junction. Once that area along with the adjacent cystic artery both identified, 3 clips were placed proximally, 1 distally in each case and the gallbladder dissected off the gallbladder bed using Harmonic scalpel and this was delivered through the epigastric port containing some small black stones. The area of dissection was inspected. No bleeding or bile leaks were seen. A Scott-Mckenna drain was then placed through the right lateral trocar site positioned into the area of the gallbladder bed. The camera was removed back up to the epigastric port and the umbilical hernia was repaired, sutures were then placed with the endoscopic suture passer placing the sutures in such a manner that they enclose the hernia defect in a transverse orientation. Once these were in place, one suture was then placed in the epigastric trocar site of the fascia level and the trocars were removed. The peritoneal cavity deflated. The fascia sutures were then tied and the skin was closed with a 4-0 Vicryl skin stitch. Dressing was applied. The patient was taken to the recovery room in satisfactory condition. Physician medical library assistant, Krissy Phoenix PA-C, played an essential role in assisting in this case, helping to position the patient, retract structures as needed, as well as suturing and cutting sutures when indicated. Her presence improved the patient's safety and decreased operative time. Ariel Hoyt MD /[id number]
== END 2017-03-02 09:18 | disposition home or self-care (01) | DRG 263 ==
LOC: JP.ED 06:31 → JP.2SS 09:39
PROVIDERS: ADMIT Internal Medicine; ATTEND Surgery
PROC: 0WQF4ZZ Repair Abdominal Wall, Percutaneous Endoscopic Approach (ICD-10-PCS; principal; 2017-03-01)
PROC: 0FT44ZZ Resection of Gallbladder, Percutaneous Endoscopic Approach (ICD-10-PCS; principal; 2017-03-01)
DX: K80.12 Calculus of gallbladder with acute and chronic cholecystitis without obstruction (principal); I45.10 Unspecified right bundle-branch block; K21.9 Gastro-esophageal reflux disease without esophagitis; H54.7 Unspecified visual loss; M16.12 Unilateral primary osteoarthritis, left hip; K80.00 Calculus of gallbladder with acute cholecystitis without obstruction; K42.0 Umbilical hernia with obstruction, without gangrene
CPT/HCPCS: 36415; 71010; 71010-26; 76705; 76705-26; 80053; 82150; 82247; 82553; 83690; 84075; 84484; 85025; 85027; 85610; 85730; 86140; 88302; 88304; 93005; 96374; 96375; 96376; 99285-25; A9270-GY; C9113; J0295; J0330; J1100; J1170; J2270; J2405; J2704; J2710; J3010; J3490; J7030; J7042; J7050; J7120

== ENCOUNTER 2017-03-18 05:56 | Day surgery (SDC) | payer BC ==
[2017-03-18] MEDS ORDERED: methylPREDNISolone Acetate 80 MG/ML SDV ONE (07:01)
[2017-03-18] MEDS ORDERED: Bupivacaine 0.25%/EPINEPHrine 1:200,000 30 ML SDV ONE (07:01)
[2017-03-18] MEDS ORDERED: EPINEPHrine 1 MG/ML SDV ONE (07:01)
[2017-03-18] MEDS ORDERED: Sodium Chloride 0.9% 1,000 ML IV SCH (07:28)
[2017-03-18] MEDS ORDERED: Ondansetron 4 MG/2 ML SDV ONE (07:48)
[2017-03-18] MEDS ORDERED: Glycopyrrolate 0.2 MG/ML 5 ML MDV ONE (07:48)
[2017-03-18] MEDS ORDERED: Propofol 200 MG/20 ML SDV ONE (07:48)
[2017-03-18] MEDS ORDERED: Rocuronium 50 MG/5 ML Vial ONE (07:48)
[2017-03-18] MEDS ORDERED: Neostigmine Methylsulfate 1 MG/ML 5 ML Syringe ONE (07:48)
[2017-03-18] MEDS ORDERED: Dexamethasone 4 MG/ML SDV ONE (07:48)
[2017-03-18] MEDS ORDERED: ceFAZolin 2 GM in Sodium Chloride 0.9% 50 ML IV ONE (08:00)
[2017-03-18] MEDS ORDERED: HYDROmorphone 1 MG/ML Syringe IVPUSH ONE ×2 (09:22→10:00)
[2017-03-18] MEDS ORDERED: HYDROmorphone 0.5 MG/0.5 ML Syringe IVPUSH ONE (09:41)
[2017-03-18] MEDS ORDERED: Ketorolac 30 MG/ML SDV IM ONE (10:28)
[2017-03-18] MEDS ORDERED: Acetaminophen/HYDROcodone 325-5 MG Tab PO PRN (10:55)
[2017-03-18 12:58] VITALS: BP 111/65
== END 2017-03-18 13:00 | disposition home or self-care (01) ==
LOC: JP.SDS 05:56
PROVIDERS: ATTEND Orthopaedic Surgery
DX: M23.222 Derangement of posterior horn of medial meniscus due to old tear or injury, left knee (principal); M65.9 Synovitis and tenosynovitis, unspecified; M94.262 Chondromalacia, left knee; K21.9 Gastro-esophageal reflux disease without esophagitis; Z79.899 Other long term (current) drug therapy; Z87.891 Personal history of nicotine dependence
CPT/HCPCS: 29881; A9270; J0690; J1040; J1100; J1170; J1885; J2405; J2704; J2710; J3010; J7040; J7050; J0171